=== PATIENT | male | born 1995 | race African-American/Black ===

== ENCOUNTER 2020-07-08 13:37 | Emergency (ER) | payer BC ==
[~2020-07-08] VITALS: Ht 175.3 cm; Wt 97.7 kg
[2020-07-08 13:48] VITALS: BP 147/80
== END 2020-07-08 17:58 | disposition home or self-care (01) ==
LOC: EMS 13:43
DX: S93.402A Sprain of unspecified ligament of left ankle, initial encounter (principal); S93.602A Unspecified sprain of left foot, initial encounter; R03.0 Elevated blood-pressure reading, without diagnosis of hypertension; X58.XXXA Exposure to other specified factors, initial encounter; Y93.72 Activity, wrestling; Y92.89 Other specified places as the place of occurrence of the external cause; Y99.8 Other external cause status